=== PATIENT | female | born 1975 | race African-American/Black ===

== ENCOUNTER 2022-03-30 15:19 | Inpatient (IN) | payer OTHER ==
[2022-03-30] MEDS ORDERED: NICOTINE 10 MG CARTRIDGE (INHALER) IH PRN (17:32)
[2022-03-30] MEDS ORDERED: BENZOCAINE/MENTHOL (CHLORASEPTIC ) LOZENGE MM PRN (17:32)
[2022-03-30] MEDS ORDERED: BISMUTH SUBSALICYLATE 524 MG/30 ML PO PRN (17:32)
[2022-03-30] MEDS ORDERED: DICYCLOMINE HCL 10 MG CAPSULE PO PRN (17:32)
[2022-03-30] MEDS ORDERED: MAGNESIUM CITRATE 300 ML BOTTLE PO PRN (17:32)
[2022-03-30] MEDS ORDERED: MAG HYDROX/AL HYDROX/SIMETH 30 ML UNIT-DOSE CUP PO PRN (17:32)
[2022-03-30] MEDS ORDERED: ACETAMINOPHEN 325 MG TABLET (FP) PO PRN ×2 (17:32)
[2022-03-30] MEDS ORDERED: MAGNESIUM HYDROX 2400MG/30ML ORAL SUSPENSION 30 ML CUP PO PRN (17:32)
[2022-03-30] MEDS ORDERED: METHOCARBAMOL 500 MG TABLET PO PRN (17:32)
[2022-03-30] MEDS ORDERED: LOPERAMIDE HCL 2 MG CAPSULE PO PRN (17:32)
[2022-03-30] MEDS ORDERED: ONDANSETRON *ODT* 4 MG TABLET SL PRN (17:32)
[2022-03-30] MEDS ORDERED: IBUPROFEN 400 MG TABLET (FP) PO PRN (17:32)
[2022-03-30] MEDS ORDERED: PRENATAL VITAMINS W/ FOLIC ACID TABLET (FP) PO SCH (17:45)
[2022-03-30] MEDS ORDERED: THIAMINE HCL 100 MG TABLET (FP) PO SCH (22:00)
[2022-03-30] MEDS ORDERED: MELATONIN 5 MG TABLETS PO SCH (22:00)
[2022-03-31 00:34] VITALS: BMI 24.5
[2022-03-31] MEDS: hydrOXYzine PAMOATE 25 MG CAPSULE (FP) PO SCH ×2 (01:15→06:35)
[2022-03-31 09:23] VITALS: BP 121/68; PULSE 95; TEMP 97.3
[2022-03-31 13:54] LABS: HEMATOCRIT 38.9 % (32.4-45.2); HEMOGLOBIN 12.4 GM/dL (10.7-15.3); MCH 27.1 pg (25.7-33.7); MCHC 31.9 g/dl (32.0-36.0); MEAN PLT VOLUME 10.1 fl (7.5-11.1); PLATELET COUNT 143 10^3/uL (134-434); RBC 4.58 M/mm3 (3.60-5.2); RDW 13.5 % (11.6-15.6); WHITE BLOOD COUNT 4.6 K/mm3 (4.0-10.0)
[2022-03-31 14:09] LABS: ALBUMIN 3.1 g/dl (3.4-5.0); BLOOD UREA NITROGEN 13.2 mg/dL (7-18)
[2022-03-31 14:12] LABS: CREATININE 0.7 mg/dL (0.55-1.3)
[2022-03-31 14:14] LABS: BILIRUBIN,TOTAL 0.5 mg/dL (0.2-1); TOT PROT 5.9 g/dl (6.4-8.2)
[2022-03-31] MEDS ORDERED: PATIENT'S OWN MEDICATION (NON-FORMULARY) (Elviteg/Cob/Emtri/Tenof Alafen 1 TAB Tablet) PO SCH (22:00)
[2022-04-01 17:09] LABS: SARS-CoV-2 NAA Not Detected (Not Detected)
== END 2022-03-31 10:55 | disposition other institution (70) | DRG 774 ==
LOC: YASAS 15:19 → Y3N 21:15
PROVIDERS: ADMIT Allergy & Immunology; ATTEND Surgery
PROC: HZ2ZZZZ Detoxification Services for Substance Abuse Treatment (ICD-10-PCS; principal; 2022-03-30)
DX: F10.10 Alcohol abuse, uncomplicated (principal); F14.10 Cocaine abuse, uncomplicated; F17.210 Nicotine dependence, cigarettes, uncomplicated; F19.24 Other psychoactive substance dependence with psychoactive substance-induced mood disorder; Z21 Asymptomatic human immunodeficiency virus [HIV] infection status; E78.5 Hyperlipidemia, unspecified; N89.8 Other specified noninflammatory disorders of vagina; Z62.810 Personal history of physical and sexual abuse in childhood; Z91.014 Allergy to mammalian meats; Z56.0 Unemployment, unspecified
CPT/HCPCS: 36415; 80053; 85027; 86780; C9803-CS; U0003; U0005